=== PATIENT | female | born 1995 | race Caucasian/White ===

== ENCOUNTER 2019-03-04 13:59 | Emergency (ER) | payer SELFPAY ==
[~2019-03-04] VITALS: Ht 162.6 cm; Wt 118.0 kg
[~2019-03-04 13:59] MED LIST: IPRA14.76; NORE-92
[2019-03-04 14:09] VITALS: Ht 162.6 cm; Wt 118.0 kg
[2019-03-04] MEDS ORDERED: ONDANSETRON 4 MG INJ IV STA (15:58)
[2019-03-04] MEDS ORDERED: SOD CHLORIDE 0.9% 1,000 ML IV STA (15:58)
[2019-03-04] MEDS ORDERED: morphine 4 MG/ML VIAL IV STA (15:58)
--- NOTE | 2019-03-04 16:11 | ERD ---
ER Documentation Chief Complaint Chief Complaint vaginal bleed and pelvic pain x 4 days HPI 24-year-old female presents to ED with 4 days of severe vaginal bleeding and 9 out of 10 pelvic pain. Patient states she had stopped her control pill and did not have a period for 8 months. However she restarted her pill but then began having headaches and nausea and stopped her pill, and then had vaginal bleeding, reports using 20 pads a day with black blood clots for past 4 days. Denies current headache, but has nausea and vomited this morning. Denies fever. Has taken Midol multiple pain meds which have not improved her pain. Patient has history of bilateral ovarian cyst with bilateral cystectomy 10 years ago. Prior to BCP patient had irregular periods. Patient suspects that she may have a ruptured cyst. Denies chest pain, syncope, palpitations. ROS All systems reviewed and are negative except as per history of present illness. Medications Home Meds Active Scripts Polyethylene Glycol* (Miralax*) 17 Gm Powd.pack, 17 GM PO DAILY, #7 Prov:MARY BAE 03/04/19 Hydrocodone/Acetaminophen ([place] 5-325 Tablet) 1 Each Tablet, 1 TAB PO Q6H PRN for PAIN, #10 TAB Prov:MARY BAE 03/04/19 Ibuprofen* (Motrin*) 600 Mg Tab, 600 MG PO QAM for 6 Days, #6 TAB Prov:MARY BAE 03/04/19 Medroxyprogesterone Acetate* (Provera*) 10 Mg Tablet, 10 MG PO DAILY for 5 Days, TAB Prov:MARY BAE 03/04/19 Reported Medications Norethindrone A-E Estradiol (Loestrin) 1 Tab Tablet 02/17/11 Albuterol/Ipratropium (Combivent) 14.7 Gm Inha 02/17/11 Allergies Allergies: Coded Allergies: No Known Allergy (Verified Allergy, Unknown, 02/17/11) PMhx/Soc Medical and Surgical Hx: pt denies Surgical Hx History of Surgery: No Anesthesia Reaction: No Hx Neurological Disorder: No Hx Cardiac Disorders: No Hx Psychiatric Problems: No Hx Miscellaneous Medical Probl: No Hx Alcohol Use: No Hx Substance Use: No Hx Tobacco Use: No Smoking Status: Never smoker FmHx Family History: No diabetes, No coronary disease, No other Physical Exam Vitals Vital Signs Date Temp Pulse Resp B/P (MAP) Pulse Ox O2 O2 Flow FiO2 Time Delivery Rate 03/04/19 98.0 61 18 121/73 96 Room Air 18:36 (89) 03/04/19 98.5 88 18 177/95 97 14:09 (122) Physical Exam Const: No acute distress Head: Atraumatic Eyes: Normal Conjunctiva ENT: Normal External Ears, Nose and Mouth. Neck: Full range of motion. No meningismus. Resp: Clear to auscultation bilaterally Cardio: Regular rate and rhythm, no murmurs Abd: Lower left quadrant tenderness to palpation as well as suprapubic pain. Both without guarding or rigidity. No McBurney's tenderness. Negative Newman's.. Normal bowel sounds. Skin: No petechiae or rashes Back: No midline or flank tenderness Ext: No cyanosis, or edema Neur: Awake and alert Psych: Normal Mood and Affect Result Diagram: 03/04/19 1615 03/04/19 1615 Results 24 hrs Laboratory Tests Test 03/04/19 16:15 03/04/19 17:31 White Blood Count 9.6 10^3/ul Red Blood Count 4.63 10^6/ul Hemoglobin 12.4 g/dl Hematocrit 37.8 % Mean Corpuscular Volume 81.6 fl Mean Corpuscular Hemoglobin 26.8 pg Mean Corpuscular Hemoglobin Concent 32.8 g/dl Red Cell Distribution Width 13.6 % Platelet Count 422 10^3/UL Mean Platelet Volume 9.2 fl Immature Granulocytes % 0.200 % Neutrophils % 67.6 % Lymphocytes % 25.7 % Monocytes % 5.4 % Eosinophils % 0.9 % Basophils % 0.2 % Nucleated Red Blood Cells % 0.0 /100WBC Immature Granulocytes # 0.020 10^3/ul Neutrophils # 6.5 10^3/ul Lymphocytes # 2.5 10^3/ul Monocytes # 0.5 10^3/ul Eosinophils # 0.1 10^3/ul Basophils # 0.0 10^3/ul Nucleated Red Blood Cells # 0.0 10^3/ul Urine Color RED Urine Clarity SLIGHTLY CLOUDY Urine pH 6.0 Urine Specific [place] 1.005 Urine Ketones TRACE mg/dL Urine Nitrite NEGATIVE mg/dL Urine Bilirubin NEGATIVE mg/dL Urine Urobilinogen NEGATIVE mg/dL Urine Leukocyte Esterase NEGATIVE Deep/ul Urine Microscopic RBC > 182 /HPF Urine Microscopic WBC 2 /HPF Urine Hemoglobin 3+ mg/dL Urine Glucose NEGATIVE mg/dL Urine Total Protein 1+ mg/dl Sodium Level 142 mmol/L Potassium Level 3.7 mmol/L Chloride Level 106 mmol/L Carbon Dioxide Level 26 mmol/L Anion Gap 10 Blood Urea Nitrogen 8 mg/dl Creatinine 0.74 mg/dl Est Glomerular Filtrat Rate mL/min > 60 mL/min Glucose Level 102 mg/dl Calcium Level 9.1 mg/dl Total Bilirubin 0.3 mg/dl Direct Bilirubin 0.00 mg/dl Indirect Bilirubin 0.3 mg/dl Aspartate Amino Transf (AST/SGOT) 34 IU/L Alanine Aminotransferase (ALT/SGPT) 33 IU/L Alkaline Phosphatase 83 IU/L Total Protein 9.0 g/dl Albumin 4.5 g/dl Globulin 4.50 g/dl Albumin/Globulin Ratio 1.00 POC Beta HCG, Qualitative NEGATIVE Current Medications Medications Dose Sig/Long Start Time Status Last (Trade) Ordered Route PRN Stop Time Admin Dose Reason Admin Sodium 1,000 ml @ Q1H STAT 03/04/19 DC 03/04/19 Chloride 1,000 mls/hr IV 15:58 03/04/19 16:26 16:57 Morphine 4 mg ONCE STAT 03/04/19 DC 03/04/19 Sulfate IV 15:58 03/04/19 16:22 (morphine) 16:02 Ondansetron 4 mg ONCE STAT 03/04/19 DC 03/04/19 HCl (Zofran IV 15:58 03/04/19 16:22 Inj) 16:02 Ibuprofen 600 mg ONCE ONCE 03/04/19 DC 03/04/19 (Motrin) PO 18:00 03/04/19 17:54 18:01 10 mg ONCE ONCE 03/04/19 DC 03/04/19 Medroxyproges PO 18:00 03/04/19 18:09 terone 18:01 Acetate (Provera) Procedures/MDM DIAGNOSTIC IMAGING REPORT Patient: IRINA DALEY : 1995 Age: 24 Sex: F MR #: [id number] DOS: 03/04/19 1558 Ordering MD: MARY BAE Location: [facility] Room/Bed: PROCEDURE: US Pelvis CLINICAL INDICATION: Vaginal bleeding for 4 days. TECHNIQUE: Transabdominal sonographic evaluation of the pelvis was performed. COMPARISON: None. FINDINGS: Uterus is anteverted and measures 8.1 x 5 x 5.8 cm. Endometrium measures 16 mm in thickness. No uterine masses are seen. Right ovary measures 4 x 2.6 x 2.4 cm. Left ovary measures 4 x 2.5 x 2.8 cm. Vascular flow is seen within both ovaries. No suspicious adnexal masses are seen. There is no free pelvic fluid. IMPRESSION: 1. Endometrial thickness of 16 mm. 2. Unremarkable ovaries. RPTAT:HAJM Physician Lauren Date Time Electronically viewed and signed by Neal Quijano Physician on 03/04/2019 17:23 RM/ CC: MARY BAE [id number] MDM: Patient's ultrasound was within normal limits aside from thickened endometrial wall. This is probably due to patient's not having her menses for the past 6 months which also explains her heavy bleeding. In addition, patient stated that the bleeding had ceased during the ER course, her hemoglobin was normal, and her vitals were stable with showing no signs of tachycardia or hypotension. Patient's pain was controlled at time of discharge with patient stating she was not in any pain at discharge. Patient was given IV fluids during ER course and vitals were stable time of discharge, showing no signs of shock or symptomatic anemia. I do feel comfortable discharging patient at this time in her current state. Patient was given ibuprofen in the ER to help with dysfunction your uterine bleeding given Rx with same. Patient also given first dose of Provera discharged with Rx for 5 more days worth. Patient was advised to follow-up with OB regarding her dysfunctional uterine bleeding. I have low suspicion for ectopic , ovarian torsion, PID, tubo-ovarian abscess, uterine prolapse, ovarian cancer, uterine cancer, nephrolithiasis, pyelonephritis, appendicitis, diverticulitis, bowel obstruction, symptomatic anemia, shock, perirectal abscess. Regarding patient's lower left quadrant pain, patient has no history of diverticulitis, has not had any fevers, has no white count, and has not had any bloody stools. I do think patient's pain is better explained in the context of her bleeding as a gynecological issue as opposed to a GI issue. At this time, patient is stable for discharge and outpatient management. I have instructed the patient to follow-up with his/her primary care physician in 1-2 days. I have discussed with the patient the possibility of needing to see a specialist for further workup and imaging studies if symptoms persist. I have instructed the patient to promptly return to the ER for any new or worsening symptoms including but not limited to increased pain, fever, nausea, vomiting, weakness or LOC. The patient and/or family expressed understanding of and agreement with this plan. All questions were answered. Home care instructions were provided. DISCLAIMER: Inadvertent spelling and grammatical errors are likely due to EHR/dictation software use and do not reflect on the overall quality of patient care. Also, please note that the electronic time recorded on this note does not necessarily reflect the actual time of the patient encounter. Departure Diagnosis: Primary Impression: Menorrhagia Additional Impression: Pelvic pain Condition: Stable NAVARROMARY EISENBERG Mar 04, 2019 16:11
[2019-03-04] MEDS ORDERED: MEDR10TA2 PO (17:38)
[2019-03-04] MEDS ORDERED: IBUP-1542 PO (17:39)
[2019-03-04] MEDS ORDERED: HYDR-4011 PO (17:40)
[2019-03-04] MEDS ORDERED: IBUPROFEN 600 MG TAB PO ONE (18:00)
[2019-03-04] MEDS ORDERED: MEDROXYPROGESTERONE 10 MG TAB PO ONE (18:00)
[2019-03-04 18:36] VITALS: BP 121/73; PULSE 61; RESP 18
[2019-03-04] MEDS ORDERED: POLY17PO6 PO (18:38)
== END 2019-03-04 18:35 | disposition home or self-care (01) ==
LOC: FTE 13:59
DX: N92.0 Excessive and frequent menstruation with regular cycle (principal); R10.2 Pelvic and perineal pain
CPT/HCPCS: 76856; 80053; 81001; 81025; 85025; 96374; 96375; 99285; J2270; J2405; J7030